=== PATIENT | female | born 2000 | race Caucasian/White ===

== ENCOUNTER 2021-11-01 00:36 | Emergency (ER) | payer BC, SELFPAY ==
--- NOTE | 2021-11-01 00:45 | PC.NURSE ---
Pt tearful at bedside while speaking with parent on phone Pt repeatedly asking why she's in the hospital. Pt denies any complaints currently. Explained to pt that she is in the hospital and to ensure she is physically ok. Pt verbalized understanding
[2021-11-01 00:47] VITALS: BP 127/77; PULSE 105; RESP 18; TEMP 36.7; O2SAT 100; BMI 23.3
--- NOTE | 2021-11-01 01:18 | ED.ALCOHOL ---
HPI - Alcohol General Chief Complaint: Overdose Stated Complaint: ETOH Time Seen by Provider: 11/01/21 00:56 Source: patient and EMS Mode of arrival: EMS Limitations: no limitations History of Present Illness HPI narrative: Patient comes to the emergency room via EMS. EMS reports that patient was found outside a bar with shallow breathing and not responding. Bystanders administered 8 mg of Narcan. By the time EMS arrived, patient was alert and oriented x4. Patient admits to drinking alcohol but denies drug abuse. Patient denies any injuries Related Data Allergies Allergy/AdvReac Type Severity Reaction Status Date / Time No Known Allergies Allergy Unverified 02/01/20 18:32 Review of Systems Review of Systems: Constitutional : No Weight loss, No Fever, No Chills, No Night Sweats, No Fatigue, No Malaise ENT/Mouth : No Hearing loss, No Ear Pain, No Nasal Congestion, No Sinus Pain, No Hoarseness, No sore throat, No Rhinorrhea, No Swallowing Difficulty Eyes: No Eye Pain, No Swelling, No Redness, No Foreign Body, No Discharge, No Vision Changes Cardiovascular : No Chest Pain, No SOB, No Dyspnea on Exertion, No Orthopnea, No Edema, No Palpitations Respiratory : No Cough, No Sputum, No Wheezing, No Smoke Exposure, No Dyspnea Gastrointestinal : No Nausea, No Vomiting, No Diarrhea, No Constipation, No abdominal Pain, No Hematochezia, No Melena Genitourinary : no irregular bleeding, No Dysuria, No Urinary Frequency, No Hematuria, No Urinary Incontinence, No Urgency, No Flank Pain, No Urinary Flow Changes, No Hesitancy Musculoskeletal : No joint pain, No Myalgias, No Joint Swelling Skin : No Skin Lesions, No rash Neuro : No Weakness, No Numbness, No Paresthesias, No Loss of Consciousness, No Dizziness, No Headache Psych : No Anxiety/Panic, No Depression, No SI/HI/AH/VH, admits to drinking heavily today Heme/Lymph: No Bruising, No Bleeding,No Lymphadenopathy Endocrine : No Polyuria, No Polydipsia, No Temperature Intolerance [facility] Past Medical History Medical History (Updated 11/01/21 @ 01:21 by Susannah Monreal MD) Asthma Physical Exam ED Vital Signs: Vital Signs - 24 hr 11/01/21 00:47 Temperature 98.1 F Pulse Rate 105 H Respiratory Rate 18 Blood Pressure 127/77 Pulse Oximetry 100 Oxygen Delivery Method Room Air BMI result Body Mass Index 23.3 Const Other: Appearance: Alert. Oriented X3. No acute distress. Seems a bit intoxicated Eyes: Pupils equal, round and reactive to light. ENT: Pharynx normal. Neck: Normal inspection. Neck supple. No lymph nodes noted. No crepitus CVS: Normal heart rate and rhythm. Pulses normal. Normal S1 and S2 Respiratory: No respiratory distress. Breath sounds normal. No Wheezing. No rales Abdomen: Soft and nontender. No rigidity. No distention. Skin: Skin warm and dry. Normal skin color. Normal skin turgor. Extremities: No lower extremity edema. No Lacerations. No Rash Neuro: Oriented X 3. No motor deficit. No sensory deficit. Moving all extremities. No slurred speech. CN 2 through 12 grossly intact Psych: calm, cooperative, normal affect Course Course Course Narrative: Patient states that she cannot remember anything. We will get basic labs, patient thinks that her parents will be able to pick her up Patient's alcohol is 206. Patient did not provide a urine sample. However, it is suspected that patient used other drugs, including narcotics, since she responded to Narcan. Patient has been saturating 100% on room air. Patient's father is here to wake her up MDM - Alcohol Lab Data Result diagrams: 11/01/21 01:27 11/01/21 01:27 Labs: Lab Results 11/01/21 11/01/21 11/01/21 Range/Units 01:27 01:27 01:27 WBC 7.6 (4.8-10.8) X10*3/uL RBC 4.52 (4.20-5.50) X10*6/uL Hgb 13.1 (12.0-16.0) g/dl Hct 39.6 (37.0-47.0) % MCV 87.6 (80.0-98.0) fL MCH 29.0 (27.0-33.0) pg MCHC 33.1 (31.0-35.0) g/dl RDW 12.9 (11.0-16.0) % Plt Count 263 (160-400) X10*3/uL MPV 10.1 (9.4-12.3) fL Immature Gran % (Auto) 0.3 (0.0-0.4) % Neut % (Auto) 47.9 (45-73) % Lymph % (Auto) 43.2 H (20-40) % [place] % (Auto) 5.0 (2-11) % Eos % (Auto) 2.8 (0-4) % Baso % (Auto) 0.8 (0-2) % Lymph # (Auto) 3.3 (1.2-4.9) X10*3/uL [place] # (Auto) 0.4 (0.1-1.2) X10*3/uL Eos # (Auto) 0.2 (0.0-0.4) X10*3/uL Baso # (Auto) 0.1 (0.0-0.2) X10*3/uL Abs Immat Gran (auto) 0.02 (0.00-0.03) X10*3/uL Absolute Neuts (auto) 3.7 (2.0-8.3) x10*3/uL Absolute Nucleated RBC 0.000 (0.0-0.012) X10*3/uL Nucleated RBC % (auto) 0.0 (0.0-0.2) /100WBC Sodium 143 (135-145) mmol/L Potassium 4.3 (3.3-5.1) mmol/L Chloride 110 H (96-108) mmol/L Carbon Dioxide 25 (22-29) mmol/L Anion Gap 12 (12-20) BUN 7 L (9-16) mg/dL Creatinine 0.77 (0.5-1.4) mg/dL Estim Creat Clear Calc 103.1 Estimated GFR > 60 Random Glucose 106 (60-115) mg/dL Calcium 9.4 (8.4-10.2) mg/dL Total Bilirubin 0.2 (0.0-1.0) mg/dL Direct Bilirubin < 0.2 (0.0-0.5) mg/dL AST 24 (5-31) U/L ALT 32 H (0-31) U/L Alkaline Phosphatase 85 (39-117) U/L Total Protein 7.7 (6.5-8.0) g/dL Albumin 4.6 (3.5-5.0) g/dL Beta HCG, Quant < 2 mIU/mL Ethyl Alcohol 206 mg/dL Discharge Plan Discharge Clinical Impression: Alcohol intoxication Patient Disposition: Home, Self-Care Instructions: Alcohol Intoxication (ED) Additional Instructions: Please follow-up with your primary care physician tomorrow. If you have any worsening or new symptoms, please return to the emergency room or call 911
[2021-11-01 01:31] LABS: MANUAL DIFF FLAG NO
[2021-11-01 01:32] LABS: Basophils Absolute Auto 0.1 X10*3/uL (0.0-0.2); Basophils Percent Auto 0.8 % (0-2); Eosinophils Absolute Auto 0.2 X10*3/uL (0.0-0.4); Eosinophils Percent Auto 2.8 % (0-4); Hematocrit 39.6 % (37.0-47.0); Hemoglobin 13.1 g/dl (12.0-16.0); Imm Gran Abs Auto 0.02 X10*3/uL (0.00-0.03); Imm Gran Pct Auto 0.3 % (0.0-0.4); Lymphocytes Absolute Auto 3.3 X10*3/uL (1.2-4.9); Lymphocytes Percent Auto 43.2 % (20-40); Mean Corpuscular HGB Conc 33.1 g/dl (31.0-35.0); Mean Corpuscular Volume 87.6 fL (80.0-98.0); Mean Platelet Volume 10.1 fL (9.4-12.3); Monocytes Absolute Auto 0.4 X10*3/uL (0.1-1.2); Neutrophils Absolute Auto 3.7 x10*3/uL (2.0-8.3); Neutrophils Percent Auto 47.9 % (45-73); Platelet Count 263 X10*3/uL (160-400); Red Blood Count 4.52 X10*6/uL (4.20-5.50); Red Cell Distribution Width 12.9 % (11.0-16.0); White Blood Count 7.6 X10*3/uL (4.8-10.8)
[2021-11-01 01:48] LABS: Ethanol 206 mg/dL
[2021-11-01 01:51] LABS: Alanine Aminotransferase 32 U/L (0-31); Albumin Level 4.6 g/dL (3.5-5.0); Alkaline Phosphatase 85 U/L (39-117); Anion Gap 12 (12-20); Aspartate Amino Transferase 24 U/L (5-31); Bilirubin Direct < 0.2 mg/dL (0.0-0.5); Bilirubin Total 0.2 mg/dL (0.0-1.0); Blood Urea Nitrogen 7 mg/dL (9-16); Calcium 9.4 mg/dL (8.4-10.2); Carbon Dioxide 25 mmol/L (22-29); Chloride 110 mmol/L (96-108); Creatinine Clr Calc Pharmacy 103.1; Estimated Glomerular Filt Rate > 60; Glucose Random 106 mg/dL (60-115); Potassium 4.3 mmol/L (3.3-5.1); Sodium 143 mmol/L (135-145); Total Protein 7.7 g/dL (6.5-8.0)
[2021-11-01 01:59] LABS: HCG Quantitative < 2 mIU/mL
[2021-11-01 02:16] VITALS: BP 122/75; PULSE 99; O2SAT 98
--- NOTE | 2021-11-01 02:19 | PC.NURSE ---
Pts father at bedside. Pt's father not understanding reason for daughter being brought into the ED. Explained to pt's father that pt was found outside of a bar by a bystander. Per EMS, bystander indicated pt was shallow breathing and not responding. Pt was given narcan by the bystander. Explained to pt's father that pt is in the ED to make sure that she is physically ok.
== END 2021-11-01 02:21 | disposition home or self-care (01) ==
PROVIDERS: Emergency Provider Emergency Medicine
DX: F10.920 Alcohol use, unspecified with intoxication, uncomplicated (principal); Y90.7 Blood alcohol level of 200-239 mg/100 ml
CPT/HCPCS: 36415; 80048; 80076; 82077; 84702; 85025; 99282; 99283

== ENCOUNTER 2022-06-09 01:05 | Emergency (ER) | payer BC, SELFPAY ==
[2022-06-09 01:12] VITALS: BP 112/54; BP 119/70; PULSE 79; PULSE 89; RESP 16; TEMP 36.4; O2SAT 100; O2SAT 99; BMI 23.3
--- NOTE | 2022-06-09 01:23 | ED.OVERDOSE ---
HPI - Overdose General Chief Complaint: Overdose Stated Complaint: overdose Time Seen by Provider: 06/09/22 01:19 Source: EMS Mode of arrival: EMS History of Present Illness HPI Narrative: Patient history of substance abuse was at her friend's house use cocaine Klonopin and Ativan became obtunded no history of opiate use in the past PD gave her 8 mg of Narcan and patient woke up alert on EMS arrival also patient had a whole denies SI or HI Related Data Allergies Allergy/AdvReac Type Severity Reaction Status Date / Time No Known Allergies Allergy Unverified 02/01/20 18:32 Review of Systems Review of Systems: Yes all other systems are reviewed and are negative [facility] Past Medical History Medical History Asthma Social History Social History Advance Directives: No Advance Directives Information Provided: Yes Physical Exam Vital Signs: Vital Signs: Last Vital Signs Temp 98.5 F 06/09/22 02:05 Pulse 87 06/09/22 03:12 Resp 18 06/09/22 03:12 BP 119/80 06/09/22 03:12 Pulse Ox 97 06/09/22 03:12 O2 Del Method 06/09/22 03:12 BMI result Body Mass Index 23.3 Appearance: Alert. Oriented X3. No acute distress. Eyes: PERRLA, No Nystagmus ENT: Pharynx normal. Oral Mucosa moist Neck: Normal inspection. Neck supple. CVS: Normal heart rate and rhythm. Pulses normal. Respiratory: No respiratory distress. Equal air entry bilateral, no wheezing/rales/rhonchi Abdomen: Soft and nontender. Bowel sounds are present, no mass palpable, no CVA tenderness Skin: Skin warm and dry. Normal skin color. Normal skin turgor. Extremities: No lower extremity edema. No calf tenderness Neuro: Oriented X 3. No motor deficit. No sensory deficit.No cerebellar signs , cranial nerves II-XII intact Medical Decision Making Lab Data [facility] Lab Attestation statement: I reviewed the patient's lab results. 06/09/22 01:42 06/09/22 01:41 Labs: Lab Results 06/09/22 06/09/22 06/09/22 Range/Units 01:41 01:42 02:13 WBC 10.8 (4.8-10.8) X10*3/uL RBC 4.59 (4.20-5.50) X10*6/uL Hgb 13.2 (12.0-16.0) g/dl Hct 40.4 (37.0-47.0) % MCV 88.0 (80.0-98.0) fL MCH 28.8 (27.0-33.0) pg MCHC 32.7 (31.0-35.0) g/dl RDW 12.6 (11.0-16.0) % Plt Count 242 (160-400) X10*3/uL MPV 10.2 (9.4-12.3) fL Immature Gran % (Auto) 0.4 (0.0-0.4) % Neut % (Auto) 72.7 (45-73) % Lymph % (Auto) 18.0 L (20-40) % [place] % (Auto) 4.1 (2-11) % Eos % (Auto) 4.2 H (0-4) % Baso % (Auto) 0.6 (0-2) % Lymph # (Auto) 2.0 (1.2-4.9) X10*3/uL [place] # (Auto) 0.4 (0.1-1.2) X10*3/uL Eos # (Auto) 0.5 H (0.0-0.4) X10*3/uL Baso # (Auto) 0.1 (0.0-0.2) X10*3/uL Abs Immat Gran (auto) 0.04 H (0.00-0.03) X10*3/uL Absolute Neuts (auto) 7.9 (2.0-8.3) x10*3/uL Absolute Nucleated RBC 0.000 (0.0-0.012) X10*3/uL Nucleated RBC % (auto) 0.0 (0.0-0.2) /100WBC Sodium 140 (135-145) mmol/L Potassium 3.9 (3.3-5.1) mmol/L Chloride 106 (96-108) mmol/L Carbon Dioxide 21 L (22-29) mmol/L Anion Gap 17 (12-20) BUN 14 (9-16) mg/dL Creatinine 0.99 (0.5-1.4) mg/dL Estim Creat Clear Calc 80.2 Estimated GFR > 60 Random Glucose 108 (60-115) mg/dL Calcium 9.2 (8.4-10.2) mg/dL Total Bilirubin 0.3 (0.0-1.0) mg/dL AST 22 (5-31) U/L ALT 16 (0-31) U/L Alkaline Phosphatase 90 (39-117) U/L Troponin I High Sens < 3.5 (<3.5-17.0) ng/L Total Protein 7.5 (6.5-8.0) g/dL Albumin 4.4 (3.5-5.0) g/dL Ethyl Alcohol mg/dL 06/09/22 Range/Units 02:13 WBC (4.8-10.8) X10*3/uL RBC (4.20-5.50) X10*6/uL Hgb (12.0-16.0) g/dl Hct (37.0-47.0) % MCV (80.0-98.0) fL MCH (27.0-33.0) pg MCHC (31.0-35.0) g/dl RDW (11.0-16.0) % Plt Count (160-400) X10*3/uL MPV (9.4-12.3) fL Immature Gran % (Auto) (0.0-0.4) % Neut % (Auto) (45-73) % Lymph % (Auto) (20-40) % [place] % (Auto) (2-11) % Eos % (Auto) (0-4) % Baso % (Auto) (0-2) % Lymph # (Auto) (1.2-4.9) X10*3/uL [place] # (Auto) (0.1-1.2) X10*3/uL Eos # (Auto) (0.0-0.4) X10*3/uL Baso # (Auto) (0.0-0.2) X10*3/uL Abs Immat Gran (auto) (0.00-0.03) X10*3/uL Absolute Neuts (auto) (2.0-8.3) x10*3/uL Absolute Nucleated RBC (0.0-0.012) X10*3/uL Nucleated RBC % (auto) (0.0-0.2) /100WBC Sodium (135-145) mmol/L Potassium (3.3-5.1) mmol/L Chloride (96-108) mmol/L Carbon Dioxide (22-29) mmol/L Anion Gap (12-20) BUN (9-16) mg/dL Creatinine (0.5-1.4) mg/dL Estim Creat Clear Calc Estimated GFR Random Glucose (60-115) mg/dL Calcium (8.4-10.2) mg/dL Total Bilirubin (0.0-1.0) mg/dL AST (5-31) U/L ALT (0-31) U/L Alkaline Phosphatase (39-117) U/L Troponin I High Sens (<3.5-17.0) ng/L Total Protein (6.5-8.0) g/dL Albumin (3.5-5.0) g/dL Ethyl Alcohol 31 mg/dL Discharge Plan Discharge Clinical Impression: Polysubstance abuse Patient Disposition: Home, Self-Care Instructions: Polysubstance Abuse (ED) Additional Instructions: Stop using cocaine/other drugs follow-up detox Interventions: [place]-Suicide Risk Severity Scale Last Done: 06/09/22 02:25
--- NOTE | 2022-06-09 01:24 | ECG_ITS ---
Test Reason : OVERDOSE Blood Pressure : / mmHG Vent. Rate : 081 BPM Atrial Rate : 081 BPM P-R Int : 144 ms QRS Dur : 088 ms QT Int : 376 ms P-R-T Axes : 055 019 039 degrees QTc Int : 436 ms Normal sinus rhythm Normal ECG When compared with ECG of 25-OCT-2012 14:26, PREVIOUS ECG IS PRESENT Referred By: Rustam Campos Electronically Signed By:MARJ BRADEN
[2022-06-09 01:49] LABS: Basophils Absolute Auto 0.1 X10*3/uL (0.0-0.2); Basophils Percent Auto 0.6 % (0-2); Eosinophils Absolute Auto 0.5 X10*3/uL (0.0-0.4); Eosinophils Percent Auto 4.2 % (0-4); Hematocrit 40.4 % (37.0-47.0); Hemoglobin 13.2 g/dl (12.0-16.0); Imm Gran Abs Auto 0.04 X10*3/uL (0.00-0.03); Imm Gran Pct Auto 0.4 % (0.0-0.4); MANUAL DIFF FLAG NO; Mean Corpuscular HGB Conc 32.7 g/dl (31.0-35.0); Mean Corpuscular Hemoglobin 28.8 pg (27.0-33.0); Mean Platelet Volume 10.2 fL (9.4-12.3); Monocytes Absolute Auto 0.4 X10*3/uL (0.1-1.2); Monocytes Percent Auto 4.1 % (2-11); Neutrophils Absolute Auto 7.9 x10*3/uL (2.0-8.3); Neutrophils Percent Auto 72.7 % (45-73); Platelet Count 242 X10*3/uL (160-400); Red Blood Count 4.59 X10*6/uL (4.20-5.50); Red Cell Distribution Width 12.6 % (11.0-16.0); White Blood Count 10.8 X10*3/uL (4.8-10.8)
[2022-06-09 02:05] VITALS: BP 104/76; PULSE 82; RESP 18; TEMP 36.9; O2SAT 100
[2022-06-09 02:16] LABS: Troponin-I High Sensitivity < 3.5 ng/L (<3.5-17.0)
[2022-06-09 02:30] LABS: Ethanol 31 mg/dL
[2022-06-09 02:40] LABS: Alanine Aminotransferase 16 U/L (0-31); Albumin Level 4.4 g/dL (3.5-5.0); Alkaline Phosphatase 90 U/L (39-117); Anion Gap 17 (12-20); Aspartate Amino Transferase 22 U/L (5-31); Bilirubin Total 0.3 mg/dL (0.0-1.0); Blood Urea Nitrogen 14 mg/dL (9-16); Calcium 9.2 mg/dL (8.4-10.2); Carbon Dioxide 21 mmol/L (22-29); Chloride 106 mmol/L (96-108); Creatinine Clr Calc Pharmacy 80.2; Estimated Glomerular Filt Rate > 60; Glucose Random 108 mg/dL (60-115); Potassium 3.9 mmol/L (3.3-5.1); Sodium 140 mmol/L (135-145); Total Protein 7.5 g/dL (6.5-8.0)
[2022-06-09 03:12] VITALS: BP 119/80; PULSE 87; RESP 18; O2SAT 97
--- OUTSIDE RECORDS SUMMARY | 2022-06-09 03:28 | XMS_ITS | Continuity of Care Document ---
:2000 Author Organization [facility] Address [address] [place] [address]- Care Team Providers Name Role Phone Mitch Arcos MD Primary Care Physician Encounter [facility] Date(s): 06/26/19 - 06/26/[address] [address]- [facility] Attending Physician: Mitch Arcos MD Allergies, Adverse Reactions, Alerts No Known Medication Allergies Medications Focalin By Mouth, 2 times a day, 0 Refills, Maintenance, 06/22/16 19:37:10 Start Date: 06/22/16 Status: OrderedSingulair By Mouth, Daily, 0 Refills, Maintenance, 06/22/16 19:37:18 Start Date: 06/22/16 Status: Ordered
--- OUTSIDE RECORDS SUMMARY | 2022-06-09 03:28 | XMS_ITS | Continuity of Care Document ---
:2000 Author Organization [facility] Address [address] [place] [id number]- Care Team Providers Name Role Phone Mitch Arcos MD Primary Care Physician Encounter [facility] Date(s): 10/17/19 - 10/17/[address] [address]- [facility] Discharge Disposition: A-D/C Walkout Attending Physician: Not on Staff, Attending MD Admitting Physician: Not on Staff, Admitting MD Referring Physician: Not on Staff, Referring MD Allergies, Adverse Reactions, Alerts No Known Medication Allergies Medications Focalin By Mouth, 2 times a day, 0 Refills, Maintenance, 06/22/16 19:37:10 Start Date: 06/22/16 Status: OrderedSingulair By Mouth, Daily, 0 Refills, Maintenance, 06/22/16 19:37:18 Start Date: 06/22/16 Status: Ordered Vital Signs Most recent to oldest [Reference Range]: 1 Weight 64 kg (10/17/19 4:31 AM) Oxygen Saturation [94-100 %] 100 % (10/17/19 4:31 AM) Pulse Rate [55-90 bpm] 79 bpm (10/17/19 4:31 AM) Blood Pressure [90-138/55-84 mm Hg] 118/78 mm Hg (10/17/19 4:31 AM) Respiratory Rate [16-30 br/min] 20 br/min (10/17/19 4:31 AM) Temperature [96.8-100.4 DegF] 99.9 DegF (10/17/19 4:31 AM) Mode of Delivery (Oxygen) Room air (10/17/19 4:31 AM) Temperature Route Oral (10/17/19 4:31 AM) Dry Weight 64 kg (10/17/19 4:31 AM)
--- OUTSIDE RECORDS SUMMARY | 2022-06-09 03:28 | XMS_ITS | Continuity of Care Document ---
:2000 Author Organization [facility] Address [address] [place] [address]- Care Team Providers Name Role Phone Josselyn FARIAS, Mitch Noble Primary Care Physician Encounter [facility] Date(s): 06/29/19 - 06/29/[address] [address]- [facility] Discharge Disposition: A-D/C Walkout Attending Physician: Jonel Moulton MD Admitting Physician: Jonel Moulton MD Referring Physician: Jonel Moulton MD Allergies, Adverse Reactions, Alerts No Known Medication Allergies Medications Focalin By Mouth, 2 times a day, 0 Refills, Maintenance, 06/22/16 19:37:10 Start Date: 06/22/16 Status: OrderedSingulair By Mouth, Daily, 0 Refills, Maintenance, 06/22/16 19:37:18 Start Date: 06/22/16 Status: Ordered
--- OUTSIDE RECORDS SUMMARY | 2022-06-09 03:28 | XMS_ITS | Continuity of Care Document ---
:2000 Author Organization [facility] Address [address] [place] [id number]- Care Team Providers Name Role Phone Josselyn FARIAS, Mitch Noble Primary Care Physician Encounter [facility] Date(s): 07/20/19 - 07/20/[address] [address]- [facility] Encounter Diagnosis Panic attack (Final) - 07/20/19 Discharge Disposition: A-D/C Home Attending Physician: Maik Duong MD Admitting Physician: Maik Duong MD Referring Physician: Not on Staff, Referring MD Allergies, Adverse Reactions, Alerts No Known Medication Allergies Medications Focalin By Mouth, 2 times a day, 0 Refills, Maintenance, 06/22/16 19:37:10 Start Date: 06/22/16 Status: OrderedSingulair By Mouth, Daily, 0 Refills, Maintenance, 06/22/16 19:37:18 Start Date: 06/22/16 Status: Ordered Vital Signs Most recent to oldest [Reference Range]: 1 2 Oxygen Saturation [94-100 %] 100 % 100 % (07/20/19 1:37 AM) (07/20/19 12:50 AM) Pulse Rate [55-90 bpm] 96 bpm 78 bpm *H* (07/20/19 12:50 AM) (07/20/19 1:37 AM) Blood Pressure [90-138/55-84 mm Hg] 117/66 mm Hg 136/ 90 mm Hg (07/20/19 1:37 AM) (07/20/19 12:50 AM) Respiratory Rate [16-30 br/min] 20 br/min 20 br/mi n (07/20/19 1:37 AM) (07/20/19 12:50 AM) Temperature [96.8-100.4 DegF] 98.3 DegF 97.9 DegF (07/20/19 1:37 AM) (07/20/19 12:50 AM) Mode of Delivery (Oxygen) Room air Room air (07/20/19 1:37 AM) (07/20/19 12:50 AM) Blood pressure sites Arm, right Arm, right (07/20/19 1:37 AM) (07/20/19 12:50 AM) Temperature Route Oral Oral (07/20/19 1:37 AM) (07/20/19 12:50 AM)
--- NOTE | 2022-06-09 05:38 | PC.NURSE ---
Patient is alert, cooperative with care. Patient answers questions appropriately. Patient denies SI/HI. Patient denies any pain. VSS. Patient c/o mild nausea, no vomiting. 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 No s/s of distress noted. Call palacio within patient's reach.
[2022-06-09 06:49] VITALS: BP 112/59; PULSE 76; RESP 16; TEMP 36.3; O2SAT 99
== END 2022-06-09 07:35 | disposition home or self-care (01) ==
PROVIDERS: Emergency Provider Internal Medicine
DX: T40.5X1A Poisoning by cocaine, accidental (unintentional), initial encounter (principal); Y92.9 Unspecified place or not applicable; F14.19 Cocaine abuse with unspecified cocaine-induced disorder; Z71.51 Drug abuse counseling and surveillance of drug abuser; Z79.899 Other long term (current) drug therapy
CPT/HCPCS: 36415; 80053; 82077; 84484; 85025; 93005; 99283; 99284

== ENCOUNTER 2022-10-03 12:42 | Emergency (ER) | payer BC, SELFPAY ==
--- NOTE | ~2022-10-03 | CT_ITS ---
EXAMINATION: CT ABDOMEN AND PELVIS WITHOUT CONTRAST CLINICAL INFORMATION: Right lower quadrant pain. COMPARISON: None available. TECHNIQUE: Multidetector volumetric imaging was performed from the superior aspect of the liver through the pubic symphysis. Sagittal and coronal reformatted images were obtained on the technologist's workstation. Lack of intravenous and oral contrast limits visceral evaluation. This CT examination was performed using dose optimization techniques as appropriate, variously including the following: *Automated exposure control *Adjustment of mA and/or kV according to patient size (this includes techniques or standardized protocols for targeted exams where dose is matched to indication/reason for exam; i.e. extremities or head) *Use of iterative reconstruction technique DLP: 41 mGy-cm FINDINGS: LUNG BASES: The visualized lung bases are unremarkable. LIVER, GALLBLADDER, AND BILIARY TREE: Unremarkable. PANCREAS: Unremarkable. SPLEEN: Unremarkable. ADRENAL GLANDS: Unremarkable. KIDNEYS AND URETERS: The kidneys are normal in size, shape, and attenuation. No hydronephrosis, hydroureter, or calculi seen. No perinephric stranding. BLADDER: Unremarkable. GASTROINTESTINAL TRACT: The stomach, small bowel and appendix are unremarkable. The colon and rectum are unremarkable. ABDOMINAL WALL: No significant hernia is appreciated. LYMPH NODES: Unremarkable. VASCULAR: Unremarkable. PELVIC VISCERA: Anteverted/retroflexed uterus. No adnexal abnormality. OSSEOUS STRUCTURES: Unremarkable. CT/CT abdomen pelvis wo IV con IMPRESSION: No acute intra-abdominal/pelvic abnormality to explain the patient's pain. No evidence for acute appendicitis. Fleischner guidelines were followed.
[2022-10-03 12:44] VITALS: BP 112/87; PULSE 84; RESP 16; TEMP 36.2; O2SAT 99; BMI 24.5
--- NOTE | 2022-10-03 12:46 | ED.GENADULT ---
HPI - General Adult General Chief complaint: Abdominal Pain Stated complaint: R side abd pain Time Seen by Provider: 10/03/22 13:25 Source: patient and family (Father, Osmany) Mode of arrival: ambulatory Limitations: no limitations History of Present Illness HPI narrative: 21-year-old female who presents emergency department for evaluation of right-sided flank and abdominal pain. The patient states the pain came on gradually 3 or 4 days prior to evaluation. She states that the pain was intermittent and would go away completely. She states that last night the pain became constant. She describes the pain is a sharp pain. She points to her right flank when asked to localize the pain. The pain does radiate to her right lower abdomen. She states the pain is 7/10 at its worst. She denied fever or chills she states she had nausea but no vomiting or diarrhea. She denied frequency be did have some dysuria. The patient states she is sexually active. She last had intercourse 1 week prior. She denies any vaginal discharge. Related Data Previous Rx's Medication Instructions Recorded cephalexin 500 mg capsule 500 mg PO TID 5 days #15 caps 10/03/22 phenazopyridine 200 mg tablet 200 mg PO TID PRN Burning with 10/03/22 (Pyridium) urination #10 tabs Allergies Allergy/AdvReac Type Severity Reaction Status Date / Time No Known Allergies Allergy Verified 10/03/22 12:44 Review of Systems Review of Systems: Yes all other systems are reviewed and are negative [facility] Past Medical History [facility] Narrative: Past medical history: Asthma. Past surgical history: None. Social history: Patient states that she is sexually active, she last had intercourse 1 to prior. She denies any vaginal discharge Medical History Asthma Social History Social History Alcohol intake: current Alcohol intake frequency: holidays/special occasions only Smoked in Last 30 Days: No Use of substances other than those prescribed or required for medical reasons: No Advance Directives: No Physical Exam ED Vital Signs: Vital Signs - 24 hr 10/03/22 12:44 10/03/22 15:17 Temperature 97.2 F Pulse Rate 84 80 Respiratory Rate 16 16 Blood Pressure 112/87 105/56 L Pulse Oximetry 99 99 Oxygen Delivery Method Room Air Room Air BMI result Body Mass Index 24.5 Course Course Course Narrative: RME performed by Cathy Hope PA-C. Patient is a 21 year old assigned female at presenting to the emergency department with abdominal pain. Labs ordered. Patient placed back in the waiting room pending room availability and results. Medications Administered Discontinued Medications Generic Name Dose Route Start Last Admin Trade Name Sebastienq PRN Reason Stop Dose Admin Sodium Chloride 1,000 mls @ 999 mls/hr 10/03/22 13:37 10/03/22 13:45 Ns IV 10/03/22 14:37 999 mls/hr .Q1H1M STA Administration Ketorolac Tromethamine 15 mg 10/03/22 13:37 10/03/22 13:45 Ketorolac Tromethamine 15 Mg/Ml Vial IVPUSH 10/03/22 13:38 15 mg ONCE STA Administration Ondansetron HCl 4 mg 10/03/22 13:37 10/03/22 13:45 Ondansetron Hcl 4 Mg/2 Ml Vial IVPUSH 10/03/22 13:38 4 mg ONCE ONE Administration Medical Decision Making Medical Decision Making MDM Narrative: 21-year-old female who presents emergency department for evaluation of right flank pain times 3-4 days which was intermittent and then became constant over the past 24 hours. The pain is a sharp pain and does radiate to her right groin area. I did order laboratory evaluation includes CBC, CMP, lipase, urinalysis, quantitative beta-hCG. CT scan of the abdomen pelvis without IV contrast was also ordered. Patient was ordered to get normal saline x1 L , Toradol 15 mg IV and Zofran 4 mg IV. 1613: My interpretation patient's laboratory evaluation is as follows: CBC and CMP were normal. Quantitative beta hCG was below detectable limits. Urinalysis revealed 1+ protein, 1+ blood, positive nitrates, positive leukocyte esterase. Microscopic revealed 0 RBCs, greater than 50 WBCs 20 squamous cells 4+ bacteria-this is not a midstream specimen The patient is feeling significantly better after the above treatment. At this time, I am concerned that she may have urinary tract infection with early pyelonephritis. The patient was treated with Keflex 500 mg orally. She was given a prescription for Keflex 500 mg 3 times a day for 5 days. She was also given prescription for Pyridium 200 mg 3 times a day as needed for dysuria. Patient was advised to take Tylenol ibuprofen for pain. Was advised return emergency department for symptoms get worse or she develops any new symptoms concerning to her. Differential Diagnosis Differential Diagnoses: The differential diagnosis associated with the presentation includes Lab Data MDM Lab Attestation statement: I reviewed the patient's lab results. 10/03/22 13:23 10/03/22 13:23 Labs: Lab Results 10/03/22 10/03/22 10/03/22 Range/Units 13:23 13:23 13:50 WBC 7.8 (4.8-10.8) X10*3/uL RBC 4.63 (4.20-5.50) X10*6/uL Hgb 13.6 (12.0-16.0) g/dl Hct 40.8 (37.0-47.0) % MCV 88.1 (80.0-98.0) fL MCH 29.4 (27.0-33.0) pg MCHC 33.3 (31.0-35.0) g/dl RDW 12.5 (11.0-16.0) % Plt Count 246 (160-400) X10*3/uL MPV 10.2 (9.4-12.3) fL Immature Gran % (Auto) 0.3 (0.0-0.4) % Neut % (Auto) 65.8 (45-73) % Lymph % (Auto) 17.3 L (20-40) % [place] % (Auto) 12.5 H (2-11) % Eos % (Auto) 3.3 (0-4) % Baso % (Auto) 0.8 (0-2) % Lymph # (Auto) 1.4 (1.2-4.9) X10*3/uL [place] # (Auto) 1.0 (0.1-1.2) X10*3/uL Eos # (Auto) 0.3 (0.0-0.4) X10*3/uL Baso # (Auto) 0.1 (0.0-0.2) X10*3/uL Abs Immat Gran (auto) 0.02 (0.00-0.03) X10*3/uL Absolute Neuts (auto) 5.1 (2.0-8.3) x10*3/uL Absolute Nucleated RBC 0.000 (0.0-0.012) X10*3/uL Nucleated RBC % (auto) 0.0 (0.0-0.2) /100WBC Sodium 136 (135-145) mmol/L Potassium 4.5 (3.3-5.1) mmol/L Chloride 103 (96-108) mmol/L Carbon Dioxide 24 (22-29) mmol/L Anion Gap 14 (12-20) BUN 14 (9-16) mg/dL Creatinine 0.81 (0.5-1.4) mg/dL Estim Creat Clear Calc 98.0 Estimated GFR > 60 Random Glucose 79 (60-115) mg/dL Calcium 9.7 (8.4-10.2) mg/dL Magnesium 2.2 (1.6-2.6) mg/dL Total Bilirubin 0.5 (0.0-1.0) mg/dL AST 27 (5-31) U/L ALT 14 (0-31) U/L Alkaline Phosphatase 84 (39-117) U/L Total Protein 8.2 H (6.5-8.0) g/dL Albumin 4.3 (3.5-5.0) g/dL Beta HCG, Quant < 2 mIU/mL Urine Color Yellow Urine Appearance Turbid Urine pH 6.0 (5.0-9.0) Ur Specific [place] 1.015 (1.005-1.025) Urine Protein 30 (1+) H (Neg-Trace) mg/dL Urine Glucose (UA) Negative (Negative) mg/dL Urine Ketones 15 (Negative) mg/dL Urine Blood Small (1+) H (Negative) Urine Nitrite Positive H (Negative) Ur Leukocyte Esterase Large (3+) H (Negative) Urine RBC 0-2 (0-2) /HPF Urine WBC >50 H (0-5) /HPF Ur Squamous Epith Cells 11-20 (0-2) /HPF Urine Bacteria 4+ (None Seen) Hyaline Casts 0-2 (0-2) /LPF Discharge Plan Discharge Clinical Impression: Abdominal wall pain in right flank Abdominal pain Qualifiers: Abdominal location: right lower quadrant Qualified Code(s): R10.31 - Right lower quadrant pain Patient Disposition: Home, Self-Care Instructions: Urinary Tract Infection in Women (ED) Additional Instructions: Your blood work was normal. The CT scan of your abdomen pelvis did not reveal any significant abnormality to explain your pain. Your urine did have a significant number of white blood cells and bacteria. Your symptoms are most likely caused by urinary tract infection in you may also have a infection of your right kidney which is causing her pain. Take Keflex (cephalexin) 500 mg pills, 1 pill 3 times a day for 5 days. Take Pyridium 200 mg pills, 1 pill 2 times a day as needed for burning with urination, this medicine will make your urine turn orange. Take ibuprofen 200 mg pills, 3 pills every 6 hours as needed for pain. Take Tylenol (acetaminophen) 500 mg pills, 2 pills every 6 hours as needed for pain. Follow-up with your doctor in 2 days. Please return to the emergency department if your symptoms get worse or if you develop any symptoms that are concerning to you. Prescriptions: New cephalexin 500 mg capsule 500 mg PO TID 5 Days Qty: 15 0RF phenazopyridine [Pyridium] 200 mg tablet 200 mg PO TID PRN (Reason: Burning with urination) Qty: 10 0RF
[2022-10-03 13:28] LABS: MANUAL DIFF FLAG NO
--- NOTE | 2022-10-03 13:28 | PC.NURSE ---
pt AOx3, reporting sharp right back and flank pain that radiates to front/abdomen. Pain has been going on for a couple days but increased in intensity last night. Pt reports pain with urination. Labs drawn and IV inserted.
[2022-10-03 13:29] LABS: Basophils Absolute Auto 0.1 X10*3/uL (0.0-0.2); Basophils Percent Auto 0.8 % (0-2); Eosinophils Absolute Auto 0.3 X10*3/uL (0.0-0.4); Eosinophils Percent Auto 3.3 % (0-4); Hematocrit 40.8 % (37.0-47.0); Hemoglobin 13.6 g/dl (12.0-16.0); Imm Gran Abs Auto 0.02 X10*3/uL (0.00-0.03); Imm Gran Pct Auto 0.3 % (0.0-0.4); Lymphocytes Absolute Auto 1.4 X10*3/uL (1.2-4.9); Lymphocytes Percent Auto 17.3 % (20-40); Mean Corpuscular HGB Conc 33.3 g/dl (31.0-35.0); Mean Corpuscular Hemoglobin 29.4 pg (27.0-33.0); Mean Corpuscular Volume 88.1 fL (80.0-98.0); Mean Platelet Volume 10.2 fL (9.4-12.3); Monocytes Percent Auto 12.5 % (2-11); Neutrophils Absolute Auto 5.1 x10*3/uL (2.0-8.3); Neutrophils Percent Auto 65.8 % (45-73); Platelet Count 246 X10*3/uL (160-400); Red Blood Count 4.63 X10*6/uL (4.20-5.50); Red Cell Distribution Width 12.5 % (11.0-16.0); White Blood Count 7.8 X10*3/uL (4.8-10.8)
[2022-10-03] MEDS: 0.9 % Sodium Chloride 1,000 ML 999 ML IV (13:45)
[2022-10-03] MEDS: Ketorolac Tromethamine 15 MG/ML VIAL IVPUSH (13:45)
[2022-10-03] MEDS: ondansetron HCL 4 MG/2 ML VIAL IVPUSH (13:45)
[2022-10-03 14:01] LABS: Appearance Urine Turbid; Color Urine Yellow; Glucose Urine UA Negative (Negative); Leukocyte Esterase Urine Large (3+) (Negative); Nitrite Urine Positive (Negative); Specific Gravity - Urine 1.015 (1.005-1.025); UMIC TRIGGER UACC YES; Urine Blood Small (1+) (Negative); Urine Ketones 15 mg/dL (Negative); Urine Protein 30 (1+) mg/dL (Neg-Trace)
[2022-10-03 14:10] LABS: Alanine Aminotransferase 14 U/L (0-31); Albumin Level 4.3 g/dL (3.5-5.0); Alkaline Phosphatase 84 U/L (39-117); Anion Gap 14 (12-20); Aspartate Amino Transferase 27 U/L (5-31); Bilirubin Total 0.5 mg/dL (0.0-1.0); Blood Urea Nitrogen 14 mg/dL (9-16); Calcium 9.7 mg/dL (8.4-10.2); Carbon Dioxide 24 mmol/L (22-29); Chloride 103 mmol/L (96-108); Estimated Glomerular Filt Rate > 60; Glucose Random 79 mg/dL (60-115); HCG Quantitative < 2 mIU/mL; Magnesium 2.2 mg/dL (1.6-2.6); Potassium 4.5 mmol/L (3.3-5.1); Sodium 136 mmol/L (135-145); Total Protein 8.2 g/dL (6.5-8.0)
[2022-10-03 14:12] LABS: Bacteria Urine 4+ (None Seen); RBC Urine 0-2 /HPF (0-2); UACC Culture Trigger YES; WBC Urine >50 /HPF (0-5)
[2022-10-03 14:13] LABS: Hyaline Casts Urine 0-2 /LPF (0-2)
--- NOTE | 2022-10-03 14:35 | PC.NURSE ---
pt back from CT scan, fluids running. reporting little to no pain. will ctm
[2022-10-03 15:17] VITALS: BP 105/56; PULSE 80; RESP 16; O2SAT 99
[2022-10-03] MEDS: cephALEXin 500 MG CAPSULE PO (16:31)
== END 2022-10-03 16:56 | disposition home or self-care (01) ==
PROVIDERS: Physician Assistant Medical; Emergency Provider Emergency Medicine Emergency Medical Services
DX: R10.31 Right lower quadrant pain (principal); N39.0 Urinary tract infection, site not specified; B96.20 Unspecified Escherichia coli [E. coli] as the cause of diseases classified elsewhere
CPT/HCPCS: 36415; 74176; 80053; 81001; 81003; 83735; 84702; 85025; 87086; 87088; 87186; 96360; 96361; 99284; J1885; J2405

== ENCOUNTER 2022-12-05 07:22 | Emergency (ER) | payer BC, SELFPAY ==
--- NOTE | ~2022-12-05 | XR_ITS ---
EXAMINATION: XR CHEST CLINICAL INFORMATION: Cough COMPARISON: Previous chest x-ray October 2012 TECHNIQUE: Frontal view of the chest was obtained. FINDINGS: No significant abnormality is noted involving the heart, lungs, mediastinum, bony thorax or soft tissues. XR/XR chest 1V IMPRESSION: Unremarkable examination.
--- NOTE | ~2022-12-05 | CT_ITS ---
EXAMINATION: CT CERVICAL SPINE WITHOUT CONTRAST CLINICAL INFORMATION: Altered mental status COMPARISON: None available. TECHNIQUE: Axial images through the cervical spine without IV contrast. Sagittal and coronal reconstructions on the technologist workstation were performed. This CT examination was performed using dose optimization techniques as appropriate, variously including the following: *Automated exposure control *Adjustment of mA and/or kV according to patient size (this includes techniques or standardized protocols for targeted exams where dose is matched to indication/reason for exam; i.e. extremities or head) *Use of iterative reconstruction technique DLP: 392 mGy-cm FINDINGS: Bone alignment is normal. No fracture or dislocation. Disc spaces are normal. Prevertebral soft tissues are normal. Visualized lung apices are clear. CT/CT cervical spine wo IV con IMPRESSION: Unremarkable examination. Fleischner guidelines were followed.
--- NOTE | ~2022-12-05 | CT_ITS ---
EXAMINATION: CT HEAD WITHOUT CONTRAST CLINICAL INFORMATION: Altered mental status COMPARISON: None available. TECHNIQUE: Contiguous axial imaging was performed from the skull base to vertex without intravenous administration of contrast. This CT examination was performed using dose optimization techniques as appropriate, variously including the following: *Automated exposure control *Adjustment of mA and/or kV according to patient size (this includes techniques or standardized protocols for targeted exams where dose is matched to indication/reason for exam; i.e. extremities or head) *Use of iterative reconstruction technique DLP: 610 mGy-cm FINDINGS: There is no evidence of an extra-axial collection. There is no evidence of intra or extra-axial hemorrhage. The ventricles and extra-axial CSF spaces are appropriate. Francis-white matter differentiation is normal. No mass, mass effect or infarct. Review at bone windows is normal. CT/CT head/brain wo IV con IMPRESSION: Unremarkable exam.
--- NOTE | 2022-12-05 07:27 | ECG_ITS ---
Test Reason : unresponsive Blood Pressure : / mmHG Vent. Rate : 086 BPM Atrial Rate : 086 BPM P-R Int : 146 ms QRS Dur : 094 ms QT Int : 384 ms P-R-T Axes : 054 017 041 degrees QTc Int : 459 ms Normal sinus rhythm Normal ECG When compared with ECG of 09-JUN-2022 01:54, No significant change was found Referred By: Hammad Casas Electronically Signed By:Miquel Ayala
--- NOTE | 2022-12-05 07:30 | ED_ITS ---
HPI - Altered Mental Status General Chief Complaint: General Medical Stated Complaint: Unresponsive x 1 hour per EMS Time Seen by Provider: 12/05/22 07:26 Source: EMS Mode of arrival: EMS Limitations: altered mental status History of Present Illness HPI narrative: This is a 22 years old female with history of poly substance abuse brought in with altered mental status. According to the EMS she has been using drugs or night she arrived obtunded, with spontaneous respiration no sign of trauma on primary survey. She received narcan prehospital 4 mg with no response. MD complaint: altered mental status Onset (ago): unknown Severity: moderate Context: drug abuse Related Data Previous Rx's Medication Instructions Recorded cephalexin 500 mg capsule 500 mg PO TID 5 days #15 caps 10/03/22 phenazopyridine 200 mg tablet 200 mg PO TID PRN Burning with 10/03/22 (Pyridium) urination 3 days #9 tabs Allergies Allergy/AdvReac Type Severity Reaction Status Date / Time No Known Allergies Allergy Verified 10/03/22 12:44 Review of Systems Review of Systems: Yes Unobtainable due to mental condition [facility] Past Medical History Medical History Asthma Social History Social History Alcohol intake: current Alcohol intake frequency: a few times a week Smoked in Last 30 Days: Yes Use of substances other than those prescribed or required for medical reasons: Yes Substance Use Type: Crack/Cocaine Substance Use Frequency: Monthly Last Used Substance: Just Prior to Admission Advance Directives: No Advance Directives Information Provided: Yes Physical Exam ED Vital Signs: Vital Signs - 24 hr 12/05/22 07:33 12/05/22 08:33 12/05/22 11:52 Temperature 98.6 F Pulse Rate 82 84 74 Respiratory Rate 16 18 19 Blood Pressure 119/84 139/99 H 101/52 L Pulse Oximetry 98 97 Oxygen Delivery Method Room Air Room Air Room Air 12/05/22 12:52 Temperature Pulse Rate 72 Respiratory Rate 20 Blood Pressure 95/59 L Pulse Oximetry 97 Oxygen Delivery Method Room Air BMI result Body Mass Index 23.9 Const Other: Decreased level of consciousness General: patient obtunded Nutritional Appearance: average body habitus Orientation/consciousness: patient obtunded HENMT Head: Yes normal to inspection Eyes Other: Pupils reactive mid size Conjunctivae: conjunctivae normal Neck Neck: Yes normal visual inspection Resp Effort & Inspection: normal respiratory effort Cardio Jugular venous distension: no JVD Rhythm: regular rhythm GI Inspection: Yes normal to inspection Palpation (GI): Soft to palpation, not firm, nontender and no guarding Auscultation: normal bowel sounds Neuro Other: Patient is alter does not respond to voice General: patient obtunded Course Reevaluation(s) Reevaluation #1: Her vital signs are stable, O2 sat is 100% she is breathing she is obtunded, my plan is to observe her for about an hour check toxicology labs she may need to be intubated for airway protection. Time: 07:53 Reevaluation #2: now more awake and alert Time: 08:22 Reevaluation #3: continue observation getting better,got up to the bathroom Time: 10:31 Additional Reevaluation(s): seen by crisis does not want detox Medications Administered Discontinued Medications Generic Name Dose Route Start Last Admin Trade Name Sebastienq PRN Reason Stop Dose Admin Sodium Chloride 1,000 mls @ 999 mls/hr 12/05/22 07:30 12/05/22 10:43 Ns IVCONT 12/05/22 08:30 Infused .Q1H1M HEIDI Infusion Sodium Chloride 1,000 mls @ 999 mls/hr 12/05/22 08:00 12/05/22 10:43 Ns IVCONT 12/05/22 09:00 Infused .Q1H1M HEIDI Infusion Medical Decision Making Medical Decision Making [facility] Narrative: Patient presented with altered mental status will do hed ct, labs Differential Diagnosis Differential Diagnoses: The differential diagnosis associated with the presentation includes Head bleed alcohol intoxication overdose Lab Data [facility] Lab Attestation statement: I reviewed the patient's lab results. 12/05/22 07:42 Labs: Lab Results 12/05/22 12/05/22 12/05/22 Range/Units 07:27 07:42 07:42 WBC (4.8-10.8) X10*3/uL RBC (4.20-5.50) X10*6/uL Hgb (12.0-16.0) g/dl Hct (37.0-47.0) % MCV (80.0-98.0) fL MCH (27.0-33.0) pg MCHC (31.0-35.0) g/dl RDW (11.0-16.0) % Plt Count (160-400) X10*3/uL MPV (9.4-12.3) fL Immature Gran % (Auto) (0.0-0.4) % Neut % (Auto) (45-73) % Lymph % (Auto) (20-40) % [place] % (Auto) (2-11) % Eos % (Auto) (0-4) % Baso % (Auto) (0-2) % Lymph # (Auto) (1.2-4.9) X10*3/uL [place] # (Auto) (0.1-1.2) X10*3/uL Eos # (Auto) (0.0-0.4) X10*3/uL Baso # (Auto) (0.0-0.2) X10*3/uL Abs Immat Gran (auto) (0.00-0.03) X10*3/uL Absolute Neuts (auto) (2.0-8.3) x10*3/uL Absolute Nucleated RBC (0.0-0.012) X10*3/uL Nucleated RBC % (auto) (0.0-0.2) /100WBC Sodium (135-145) mmol/L Potassium (3.3-5.1) mmol/L Chloride (96-108) mmol/L Carbon Dioxide (22-29) mmol/L Anion Gap (12-20) BUN (9-16) mg/dL Creatinine (0.5-1.4) mg/dL Estim Creat Clear Calc Estimated GFR POC Glucose 80 (60-115) mg/dL Random Glucose (60-115) mg/dL Calcium (8.4-10.2) mg/dL Total Bilirubin (0.0-1.0) mg/dL AST (5-31) U/L ALT (0-31) U/L Alkaline Phosphatase (39-117) U/L Troponin I High Sens < 2.7 (<3.5-17.0) ng/L Total Protein (6.5-8.0) g/dL Albumin (3.5-5.0) g/dL Beta HCG, Quant mIU/mL Urine Color Urine Appearance Urine pH (5.0-9.0) Ur Specific [place] (1.005-1.025) Urine Protein (Neg-Trace) mg/dL Urine Glucose (UA) (Negative) mg/dL Urine Ketones (Negative) mg/dL Urine Blood (Negative) Urine Nitrite (Negative) Ur Leukocyte Esterase (Negative) Urine RBC (0-2) /HPF Urine WBC (0-5) /HPF Ur Squamous Epith Cells (0-2) /HPF Urine Bacteria (None Seen) Hyaline Casts (0-2) /LPF Urine Opiates Screen (Not Detect) Urine Fentanyl Screen (Not Detect) Ur Barbiturates Screen (Not Detect) Ur Phencyclidine Scrn (Not Detect) Ur Amphetamines Screen (Not Detect) U Benzodiazepines Scrn (Not Detect) Urine Cocaine Screen (Not Detect) U Marijuana (THC) Screen (Not Detect) Ethyl Alcohol 138 mg/dL 12/05/22 12/05/22 12/05/22 Range/Units 07:42 08:38 08:38 WBC 6.4 (4.8-10.8) X10*3/uL RBC 4.82 (4.20-5.50) X10*6/uL Hgb 13.9 (12.0-16.0) g/dl Hct 42.5 (37.0-47.0) % MCV 88.2 (80.0-98.0) fL MCH 28.8 (27.0-33.0) pg MCHC 32.7 (31.0-35.0) g/dl RDW 12.7 (11.0-16.0) % Plt Count 250 (160-400) X10*3/uL MPV 10.1 (9.4-12.3) fL Immature Gran % (Auto) 0.3 (0.0-0.4) % Neut % (Auto) 48.4 (45-73) % Lymph % (Auto) 41.4 H (20-40) % [place] % (Auto) 4.7 (2-11) % Eos % (Auto) 4.4 H (0-4) % Baso % (Auto) 0.8 (0-2) % Lymph # (Auto) 2.7 (1.2-4.9) X10*3/uL [place] # (Auto) 0.3 (0.1-1.2) X10*3/uL Eos # (Auto) 0.3 (0.0-0.4) X10*3/uL Baso # (Auto) 0.1 (0.0-0.2) X10*3/uL Abs Immat Gran (auto) 0.02 (0.00-0.03) X10*3/uL Absolute Neuts (auto) 3.1 (2.0-8.3) x10*3/uL Absolute Nucleated RBC 0.000 (0.0-0.012) X10*3/uL Nucleated RBC % (auto) 0.0 (0.0-0.2) /100WBC Sodium 144 (135-145) mmol/L Potassium 3.9 (3.3-5.1) mmol/L Chloride 110 H (96-108) mmol/L Carbon Dioxide 25 (22-29) mmol/L Anion Gap 13 (12-20) BUN 8 L (9-16) mg/dL Creatinine 0.95 (0.5-1.4) mg/dL Estim Creat Clear Calc 86.2 Estimated GFR > 60 POC Glucose (60-115) mg/dL Random Glucose 86 (60-115) mg/dL Calcium 9.5 (8.4-10.2) mg/dL Total Bilirubin 0.3 (0.0-1.0) mg/dL AST 19 (5-31) U/L ALT 14 (0-31) U/L Alkaline Phosphatase 95 (39-117) U/L Troponin I High Sens (<3.5-17.0) ng/L Total Protein 8.7 H (6.5-8.0) g/dL Albumin 5.0 (3.5-5.0) g/dL Beta HCG, Quant < 2 mIU/mL Urine Color Urine Appearance Urine pH (5.0-9.0) Ur Specific [place] (1.005-1.025) Urine Protein (Neg-Trace) mg/dL Urine Glucose (UA) (Negative) mg/dL Urine Ketones (Negative) mg/dL Urine Blood (Negative) Urine Nitrite (Negative) Ur Leukocyte Esterase (Negative) Urine RBC (0-2) /HPF Urine WBC (0-5) /HPF Ur Squamous Epith Cells (0-2) /HPF Urine Bacteria (None Seen) Hyaline Casts (0-2) /LPF Urine Opiates Screen (Not Detect) Urine Fentanyl Screen (Not Detect) Ur Barbiturates Screen (Not Detect) Ur Phencyclidine Scrn (Not Detect) Ur Amphetamines Screen (Not Detect) U Benzodiazepines Scrn (Not Detect) Urine Cocaine Screen (Not Detect) U Marijuana (THC) Screen (Not Detect) Ethyl Alcohol mg/dL 12/05/22 12/05/22 Range/Units 11:03 11:03 WBC (4.8-10.8) X10*3/uL RBC (4.20-5.50) X10*6/uL Hgb (12.0-16.0) g/dl Hct (37.0-47.0) % MCV (80.0-98.0) fL MCH (27.0-33.0) pg MCHC (31.0-35.0) g/dl RDW (11.0-16.0) % Plt Count (160-400) X10*3/uL MPV (9.4-12.3) fL Immature Gran % (Auto) (0.0-0.4) % Neut % (Auto) (45-73) % Lymph % (Auto) (20-40) % [place] % (Auto) (2-11) % Eos % (Auto) (0-4) % Baso % (Auto) (0-2) % Lymph # (Auto) (1.2-4.9) X10*3/uL [place] # (Auto) (0.1-1.2) X10*3/uL Eos # (Auto) (0.0-0.4) X10*3/uL Baso # (Auto) (0.0-0.2) X10*3/uL Abs Immat Gran (auto) (0.00-0.03) X10*3/uL Absolute Neuts (auto) (2.0-8.3) x10*3/uL Absolute Nucleated RBC (0.0-0.012) X10*3/uL Nucleated RBC % (auto) (0.0-0.2) /100WBC Sodium (135-145) mmol/L Potassium (3.3-5.1) mmol/L Chloride (96-108) mmol/L Carbon Dioxide (22-29) mmol/L Anion Gap (12-20) BUN (9-16) mg/dL Creatinine (0.5-1.4) mg/dL Estim Creat Clear Calc Estimated GFR POC Glucose (60-115) mg/dL Random Glucose (60-115) mg/dL Calcium (8.4-10.2) mg/dL Total Bilirubin (0.0-1.0) mg/dL AST (5-31) U/L ALT (0-31) U/L Alkaline Phosphatase (39-117) U/L Troponin I High Sens (<3.5-17.0) ng/L Total Protein (6.5-8.0) g/dL Albumin (3.5-5.0) g/dL Beta HCG, Quant mIU/mL Urine Color Yellow Urine Appearance Clear Urine pH 6.0 (5.0-9.0) Ur Specific [place] 1.010 (1.005-1.025) Urine Protein Negative (Neg-Trace) mg/dL Urine Glucose (UA) Negative (Negative) mg/dL Urine Ketones Negative (Negative) mg/dL Urine Blood Negative (Negative) Urine Nitrite Negative (Negative) Ur Leukocyte Esterase Negative (Negative) Urine RBC 0-2 (0-2) /HPF Urine WBC 0-5 (0-5) /HPF Ur Squamous Epith Cells 0-2 (0-2) /HPF Urine Bacteria None Seen (None Seen) Hyaline Casts 0-2 (0-2) /LPF Urine Opiates Screen Not Detected (Not Detect) Urine Fentanyl Screen Not Detected (Not Detect) Ur Barbiturates Screen Not Detected (Not Detect) Ur Phencyclidine Scrn Not Detected (Not Detect) Ur Amphetamines Screen Not Detected (Not Detect) U Benzodiazepines Scrn Not Detected (Not Detect) Urine Cocaine Screen POSITIVE H (Not Detect) U Marijuana (THC) Screen Not Detected (Not Detect) Ethyl Alcohol mg/dL Independent Interpretation I performed an independent interpretation of an: EKG Interpretation: Normal sinus rhythm a no ST-T changes Critical Care Time Critical Care Time Critical Care Time: Yes Total Critical Care Time: 60 Attestation: unresponsive taking care of the pt/speaking to EMS/ Discharge Plan Discharge Clinical Impression: Drug abuse, Alcohol abuse Patient Disposition: Home, Self-Care Instructions: Polysubstance Abuse (ED) Additional Instructions: Follow-up with primary care physician, return if you are worse Prescriptions: No Action phenazopyridine [Pyridium] 200 mg tablet 200 mg PO TID PRN (Reason: Burning with urination) 3 Days Qty: 9 0RF cephalexin 500 mg capsule 500 mg PO TID 5 Days Qty: 15 0RF Referrals: Physician,Unknown J [Primary Care Provider] - 3 days
[2022-12-05 07:33] VITALS: BP 119/84; BP 120/90; PULSE 82; PULSE 85; RESP 16; TEMP 37; O2SAT 98; BMI 23.9
[2022-12-05 07:46] LABS: MANUAL DIFF FLAG NO
[2022-12-05 07:48] LABS: Glucose, Whole Blood 80 mg/dL (60-115)
[2022-12-05 07:48] LABS: Basophils Absolute Auto 0.1 X10*3/uL (0.0-0.2); Basophils Percent Auto 0.8 % (0-2); Eosinophils Absolute Auto 0.3 X10*3/uL (0.0-0.4); Eosinophils Percent Auto 4.4 % (0-4); Hematocrit 42.5 % (37.0-47.0); Hemoglobin 13.9 g/dl (12.0-16.0); Imm Gran Abs Auto 0.02 X10*3/uL (0.00-0.03); Imm Gran Pct Auto 0.3 % (0.0-0.4); Lymphocytes Absolute Auto 2.7 X10*3/uL (1.2-4.9); Lymphocytes Percent Auto 41.4 % (20-40); Mean Corpuscular HGB Conc 32.7 g/dl (31.0-35.0); Mean Corpuscular Hemoglobin 28.8 pg (27.0-33.0); Mean Corpuscular Volume 88.2 fL (80.0-98.0); Mean Platelet Volume 10.1 fL (9.4-12.3); Monocytes Absolute Auto 0.3 X10*3/uL (0.1-1.2); Monocytes Percent Auto 4.7 % (2-11); Neutrophils Absolute Auto 3.1 x10*3/uL (2.0-8.3); Neutrophils Percent Auto 48.4 % (45-73); Platelet Count 250 X10*3/uL (160-400); Red Blood Count 4.82 X10*6/uL (4.20-5.50); Red Cell Distribution Width 12.7 % (11.0-16.0); White Blood Count 6.4 X10*3/uL (4.8-10.8)
--- NOTE | 2022-12-05 07:54 | PC.NURSE ---
pt BIBA. found unresponsive. friends reported a night of alcohol and cocaine use. hx of seizures. down time 45min-1hr. EMS gave 4mg narcan. unreactive to all stimuli. pt still unresponsive on arrival. VSS. pupils dilated but reactive to light. feet turned inward.
[2022-12-05] MEDS: 0.9 % Sodium Chloride 1,000 ML 999 ML IVCONT ×2 (07:57→08:29)
[2022-12-05 08:01] LABS: Ethanol 138 mg/dL
[2022-12-05 08:33] VITALS: BP 139/99; PULSE 84; RESP 18; O2SAT 98
--- NOTE | 2022-12-05 08:44 | PC.NURSE ---
pt awake and arousable. drowsy but responsive. a&o x4, compliant. labs drawn, IV placed, fluids hung per mar. gave permission to notify mother. pt will give urine sample when has to go to the bathroom. vss. wctm
[2022-12-05 08:58] LABS: Troponin-I High Sensitivity < 2.7 ng/L (<3.5-17.0)
[2022-12-05 09:11] LABS: Alanine Aminotransferase 14 U/L (0-31); Alkaline Phosphatase 95 U/L (39-117); Anion Gap 13 (12-20); Aspartate Amino Transferase 19 U/L (5-31); Bilirubin Total 0.3 mg/dL (0.0-1.0); Blood Urea Nitrogen 8 mg/dL (9-16); Calcium 9.5 mg/dL (8.4-10.2); Carbon Dioxide 25 mmol/L (22-29); Chloride 110 mmol/L (96-108); Creatinine Clr Calc Pharmacy 86.2; Estimated Glomerular Filt Rate > 60; Glucose Random 86 mg/dL (60-115); Potassium 3.9 mmol/L (3.3-5.1); Sodium 144 mmol/L (135-145); Total Protein 8.7 g/dL (6.5-8.0)
[2022-12-05 09:21] LABS: HCG Quantitative < 2 mIU/mL
--- NOTE | 2022-12-05 09:37 | PC.NURSE ---
EKG obtained by lm Kirk friend of pt stopped by to drop off pt's phone at ED check-in pt sleeping on stretcher comfortably. rr even/unlabored. wctm
--- NOTE | 2022-12-05 10:22 | MHC.RECOVRN ---
Briefly met with pt in ED5 after pt BIBA found unresponsive, down time 45min-1 hr, still unresponsive at arrival. Per provider note, Narcan administered with no effect. Pt laying in bed, drowsy but wakes to voice. Pt does not engage with t/w, only nods head yes or no. Pt declining ATS. T/w to check in later when pt more awake.
[2022-12-05 11:18] LABS: Appearance Urine Clear; Color Urine Yellow; Glucose Urine UA Negative (Negative); Leukocyte Esterase Urine Negative (Negative); Nitrite Urine Negative (Negative); Urine Blood Negative (Negative); Urine Ketones Negative (Negative); Urine Protein Negative (Neg-Trace)
[2022-12-05 11:20] LABS: Bacteria Urine None Seen (None Seen); Hyaline Casts Urine 0-2 /LPF (0-2); RBC Urine 0-2 /HPF (0-2); Squamous Epithelial Cell Urine 0-2 /HPF (0-2); WBC Urine 0-5 /HPF (0-5)
[2022-12-05 11:52] VITALS: BP 101/52; PULSE 74; RESP 19; O2SAT 97
[2022-12-05 12:52] VITALS: BP 95/59; PULSE 72; RESP 20; O2SAT 97
[2022-12-05 13:31] LABS: Amphetamine Screen Urine Not Detected (Not Detect); Barbiturates, Urine Not Detected (Not Detect); Benzodiazepines Screen Urine Not Detected (Not Detect); Cannabinoid Screen Urine Not Detected (Not Detect); Cocaine Screen Urine POSITIVE (Not Detect); Fentanyl, urine Not Detected (Not Detect); Opiate Screen Urine Not Detected (Not Detect); Phencyclidine Screen Urine Not Detected (Not Detect)
[2022-12-05 14:35] VITALS: BP 119/59; PULSE 68; RESP 16; O2SAT 97
--- NOTE | 2022-12-05 15:07 | MHC.RECOVRN ---
Met with pt and pts mother and father in ED5 after parents requested recovery support information. When asked if pt has questions or concerns, pt states Can I go home? Pt reports cocaine use a couple times a month and is not currently concerned regarding alcohol or substance use. Educated pt and parents on harm reduction with alcohol and substance use, discussed [employer] and provided fentanyl test strips. Parents do have Narcan at home, declined take home Narcan from ED. Provided pt and parents with written recovery resources/supports and answered all questions. Encouraged pt/parents to call t/w if needed.
== END 2022-12-05 15:09 | disposition home or self-care (01) ==
PROVIDERS: Emergency Provider Emergency Medicine
DX: F10.10 Alcohol abuse, uncomplicated (principal); F19.10 Other psychoactive substance abuse, uncomplicated; Y90.6 Blood alcohol level of 120-199 mg/100 ml; R41.82 Altered mental status, unspecified
CPT/HCPCS: 36415; 70450; 71045; 72125; 80053; 80307; 81001; 82947; 84484; 84702; 85025; 93005; 96360; 96361; 99284; 99285

== ENCOUNTER → 2022-12-05 07:27 | Outpatient (BNV) | payer BC, SELFPAY | PROVIDERS: Emergency Provider Emergency Medicine; Visit Provider Internal Medicine Cardiovascular Disease | DX: R41.82 Altered mental status, unspecified (principal) | CPT/HCPCS: 93010 ==

== ENCOUNTER 2025-01-13 19:40 | Emergency (ER) | payer BC, SELFPAY ==
--- NOTE | 2025-01-13 | ECG_ITS ---
Test Reason : SYNCOPE/SEIZURE Blood Pressure : */* mmHG Vent. Rate : 74 BPM Atrial Rate : 74 BPM P-R Int : 142 ms QRS Dur : 94 ms QT Int : 382 ms P-R-T Axes : 50 5 36 degrees QTcB Int : 424 ms Normal sinus rhythm with sinus arrhythmia Normal ECG When compared with ECG of 05-Dec-2022 08:47, No significant change was found Referred By: Generic ED Physician Electronically Signed By: MARJ BRADEN
[2025-01-13 19:46] VITALS: BP 116/72; BP 116/74; PULSE 74; PULSE 80; RESP 16; TEMP 36.3; O2SAT 100; BMI 24.1
[2025-01-13 19:55] VITALS: BP 116/74; PULSE 80; RESP 16; TEMP 36.3
--- NOTE | 2025-01-13 19:58 | PC.NURSE ---
pt feeling better, positive abdominal pain, denies headache or dizziness. Pt ambulated to bathroom with setady gate. A&O x4.
[2025-01-13 19:59] VITALS: O2SAT 96
[2025-01-13 20:06] LABS: Appearance Urine Clear; Glucose Urine UA Negative (Negative); PH 6.0 (5.0-9.0); Specific Gravity - Urine 1.025 (1.005-1.025); UMIC TRIGGER UACC YES
[2025-01-13 20:08] LABS: UACC Culture Trigger YES
[2025-01-13 20:11] LABS: MANUAL DIFF FLAG NO
[2025-01-13 20:13] LABS: Hematocrit 34.1 % (37.0-47.0); Hemoglobin 11.9 g/dl (12.0-16.0); Imm Gran Abs Auto 0.03 X10*3/uL (0.00-0.03); Imm Gran Pct Auto 0.3 % (0.0-0.4); Lymphocytes Absolute Auto 2.0 X10*3/uL (1.2-4.9); Mean Corpuscular HGB Conc 34.9 g/dl (31.0-35.0); Mean Corpuscular Hemoglobin 30.1 pg (27.0-33.0); Mean Corpuscular Volume 86.3 fL (80.0-98.0); NRBC Abs Auto 0.000 X10*3/uL (0.0-0.012); NRBC Pct Auto 0.0 /100WBC (0.0-0.2); Platelet Count 221 X10*3/uL (160-400); Red Blood Count 3.95 X10*6/uL (4.20-5.50); White Blood Count 10.0 X10*3/uL (4.8-10.8)
[2025-01-13 20:32] LABS: Alanine Aminotransferase 19 U/L (0-31); Albumin Level 4.5 g/dL (3.5-5.0); Alkaline Phosphatase 61 U/L (39-117); Anion Gap 17 (12-20); Aspartate Amino Transferase 23 U/L (5-31); Blood Urea Nitrogen 14 mg/dL (9-16); Calcium 9.1 mg/dL (8.4-10.2); Carbon Dioxide 18 mmol/L (22-29); Chloride 107 mmol/L (96-108); Creatinine Clr Calc Pharmacy 120.9; Estimated Glomerular Filt Rate > 60; Potassium 3.9 mmol/L (3.3-5.1); Sodium 138 mmol/L (135-145); Total Protein 7.4 g/dL (6.5-8.0)
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
--- OUTSIDE RECORDS SUMMARY | 2025-01-13 21:17 | XMS_ITS | Clinical Summary ---
Author Organization [facility] Address [address] [place] [address] Phone Care Team Providers Care Underground Distribution Engineer Name Role Phone Mitch Arcos MD Primary Care Provider [phone] Allergies No known active allergies Medications FLUoxetine (PROZAC) 20 MG capsule Take 20 mg by mouth. 10/24/2018 Active montelukast (SINGULAIR) 10 mg tablet Take 10 mg by mouth. 10/03/2018 Active Social History Tobacco Use Types Packs/Day Years Used Date Smoking Tobacco: Never Smokeless Tobacco: Never Alcohol Use Standard Drinks/Week Comments No 0 (1 standard drink = 0.6 oz pur e alcohol) Education Answer Date Recorded Are you interested in more education? Not on keyon e 09/11/2022 Are you concerned about learning? Not on file 09/11/2022 No 09/11/2022 No 09/11/2022 Digital Access Answer Date Recorded No 10/13/2022 No 10/13/2022 No 10/13/2022 Reliable internet access at home? Not on file 10/13/2022 Device with a working camera? Not on file Comments No Sex and Gender Information Value Date Recorded Sex Assigned at Female 07/14/2018 10:48 PM EST Legal Sex Female 10:46 PM EST Gender Identity Female 07/14/2018 10:48 PM EST Sexual Orientation Pansexual 07/14/2018 10 :48 PM EST Last Filed Vital Signs Vital Sign Reading Time Taken Comments Blood Pressure 105/60 02/05/2021 3:55 AM EDT Pulse 96 02/05/2021 3:55 AM EDT Temperature 36.9 C (98.4 F) 02/05/2021 2:47 AM EDT Respiratory Rate 20 02/05/2021 3:55 AM EDT Oxygen Saturation 99% 02/05/2021 3:55 AM EDT Inhaled Oxygen Concentration - - Weight 63.5 kg (140 lb) 12/27/2018 11:01 PM EDT Height 165.1 cm (5' 5 ) 12/27/2018 11:01 PM EDT Body Mass Index 23.3 12/27/2018 11:01 PM EDT Plan of Treatment Health Maintenance Due Date Last Done Comments DEPRESSION SCREENING 2011 SMOKING Hx and SMOKELESS TOBACCO SCREENING 10/13/2012 HEPATITIS C SCREENING 10/13/2017 HIV ONE-TIME SCREENING (18-65 YEARS) 10/13/2017 PAP SMEAR 10/13/2020 Adult Td,Tdap Booster 11/26/2021 11/27/2011 COVID-19 VACCINE ( season) 2024 09/21/2020 HIB VACCINES Completed 12/27/2000, 12/2000, 04/22/2000, Additional history exists PNEUMOCOCCAL VACCINES (0-49 years) Aged Out 12/27/2000, 05/24/2000, 04/22/2000, Additional history exists No longer eligible based on patient's age to complete this topic HPV VACCINES Completed 07/10/2014, 02/15, 01/01/2014 MENINGOCOCCAL VACCINES (ACWY) Completed 01/23/2016, 11/27/2011 HEPATITIS A VACCINES Completed 02/08/2018, 01/23/20 16 MENINGOCOCCAL VACCINES (B) Aged Out N o longer eligible based on patient's age to complete this topic Medical Devices Not on file Insurance FEDERAL [employer] [facility] [employer] [facility] [employer] [facility] [employer] [facility] Direct Vet Marketing INSURANCE [facility] Care Teams Underground Distribution Engineer Relationship Specialty Start Date End Date Mitch Arcos MD [address] [place] [address] [place] [address] PCP - General Pediatrics 07/14/18 Additional Source Comments The information contained in this document represents components of the legal health record. It is not the complete legal health record.[facility]
--- OUTSIDE RECORDS SUMMARY | 2025-01-13 21:17 | XMS_ITS | Encounter Summary ---
Author Organization [facility] Address [address] [place] [address] Phone Care Team Providers Care Daycare Teacher Name Role Phone Mitch Arcos MD Primary Care Provider Reason for Visit * Reason Comments Med Refill Encounter Details Date Type Department Care Team (Late st Contact Info) Description 01/14/2019 Refill [facility] [address] [facility] [place] [address] Mitch Arcos MD [address] [place] [address] [place] [address] Mild intermittent asthma without complication Social History Tobacco Use Types Packs/Day Years Used Date Smoking Tobacco: Never Comments:Never Smoker Comments Unknown Sex and Gender Information Value Date Recorded Sex Assigned at Not on file Legal Sex Female 6:25 PM EDT Gender Identity Not on file Sexual Orientation Straight 02/09/2019 9: 41 AM EDT documented as of this encounter Plan of Treatment Not on file documented as of this encounter Visit Diagnoses Diagnosis Mild intermittent asthma without complication documented in this encounter Care Teams Daycare Teacher Relationship Specialty Start Date End Date Mitch Arcos MD [address] [place] [address] [place] [address] PCP - General 09/22/17 documented as of this encounter
--- OUTSIDE RECORDS SUMMARY | 2025-01-13 21:17 | XMS_ITS | Encounter Summary ---
Author Organization [facility] Address [address] [place] [address] Phone Care Team Providers Care Tire Specialist Name Role Phone Mitch Arcos MD Primary Care Provider Encounter Details Date Type Department Care Team (Late st Contact Info) Description 11/06/2010 Conversion Encounter [facility] [address] [place] [place] [address] Social History Tobacco Use Types Packs/Day Years Used Date Smoking Tobacco: Never Assessed Comments Unknown Sex and Gender Information Value Date Recorded Sex Assigned at Not on file Legal Sex Female 6:25 PM EDT Gender Identity Not on file Sexual Orientation Straight 02/09/2019 9: 41 AM EDT documented as of this encounter Plan of Treatment Not on file documented as of this encounter Visit Diagnoses Not on filedocumented in this encounter Care Teams Tire Specialist Relationship Specialty Start Date End Date Mitch Arcos MD [address] [facility] [place] [address] PCP - General 09/22/17 documented as of this encounter
[2025-01-13 22:20] VITALS: BP 120/69; PULSE 81; RESP 14; TEMP 36.8; O2SAT 98
[2025-01-13 22:27] VITALS: BP 120/69; PULSE 81; RESP 14; TEMP 36.8; O2SAT 98
== END 2025-01-13 22:28 | disposition home or self-care (01) ==
PROVIDERS: Emergency Provider Emergency Medicine
DX: O26.891 Other specified pregnancy related conditions, first trimester (principal); R55 Syncope and collapse; R10.2 Pelvic and perineal pain; I49.8 Other specified cardiac arrhythmias; Z3A.01 Less than 8 weeks gestation of pregnancy; Z79.899 Other long term (current) drug therapy
CPT/HCPCS: 36415; 80053; 81001; 84702; 85025; 87086; 93005; 99283; 99285

== ENCOUNTER → 2025-01-13 19:48 | Outpatient (BNV) | payer BC, SELFPAY | PROVIDERS: Emergency Provider Emergency Medicine; Visit Provider Internal Medicine | DX: R55 Syncope and collapse (principal); R56.9 Unspecified convulsions | CPT/HCPCS: 93010 ==

== ENCOUNTER 2025-01-22 21:51 | Emergency (ER) | payer BC, SELFPAY ==
--- NOTE | 2025-01-22 22:53 | ED_ITS ---
HPI - General Adult General Chief complaint: Vaginal Bleeding Stated complaint: vaginal bleeding (? miscarriage) Time Seen by Provider: 01/22/25 23:32 Source: patient Mode of arrival: ambulatory Limitations: no limitations History of Present Illness ED Provider: Dr. Ashwini Alcantara HPI narrative: 24-year-old female with no significant past medical history presenting with continued vaginal bleeding that is been ongoing for the last several days. She is currently approximately 8-1/2 weeks based on her last menstrual cycle. States that she has been having initially some spotting which has become more of a brisk bleeding and has even passed a few clots. Denies any abdominal pain. No associated dysuria or hematuria. No reported fever. Denies nausea or vomiting. No bowel complaints. She has not had her 1st appointment with her OBGYN yet. Related Data Previous Rx's ?Medication ?Instructions ?Recorded cephalexin 500 mg capsule 500 mg PO TID 5 days #15 cap s 10/03/22 phenazopyridine 200 mg tablet 200 mg PO TID PRN Burnin g with 10/03/22 (Pyridium) urination 3 days #9 tabs Allergies Allergy/AdvReac Type Severity Reaction Status Date / Time No Known Allergies Allergy Verified 01/22/25 23:03 Review of Systems 2 Review of Systems: as per HPI, full review of systems performed and negative but for the above mentioned pertinent positives and negatives. [facility] Past Medical History Medical History Asthma Social History Social History Alcohol intake: current Alcohol intake frequency: a few times a week Smoked in Last 30 Days: No Use of substances other than those prescribed or required for medical reasons: No Substance Use Type: Crack/Cocaine Advance Directives: No Advance Directives Information Provided: Yes Do you have a plan to hurt others: No Plan Physical Exam ED Exam Exam: GENERAL: Well-Appearing, conversant, no acute distress. SKIN: Normal skin color for ethnicity, warm, dry, no rashes noted. HEENT: Normocephalic, atraumatic, no stridor, posterior oropharynx nonerythematous, dentition intact, EOMI. NECK: Soft, supple, full ROM, midline structures nontender, no step-offs, no deformities, no lymphadenopathy. CHEST: Heart regular rate and rhythm, no murmurs, symmetric chest rise and fall. PULMONARY: Clear to auscultation bilaterally, no labored breathing, no wheezes/rhales/rhonchi. ABDOMINAL: Soft, nondistended, nontender, positive bowel sounds in all quadrants. : Deferred. MUSCULOSKELETAL: Normal tone, full range of motion, no deformities, no peripheral edema. NEURO: Alert and oriented x3, CN II through XII intact, equal strength and sensation bilateral upper and lower extremities, no focal neurologic deficits. PSYCHIATRIC: Normal affect, fluid speech, good eye contact and appropriate demeanor. Vital Signs: Vital Signs - 24 hr 01/22/25 22:55 Temperature 98.1 F Pulse Rate 73 Respiratory Rate 20 Blood Pressure 100/66 Pulse Oximetry 99 Oxygen Delivery Method Room Air BMI result Body Mass Index 25.0 Course Course Course Narrative: RME, this is a rapid medical exam performed by Jac Barbosa please refer to primary provider for complete H&P- 24-year-old female who reports she has about a day and a half weeks , presents for evaluation of vaginal bleeding. She is concerned that she is having a miscarriage. Symptoms started at 8:00 p.m., about 2 hours prior to arrival. Plan for labs, urinalysis and hCG. Medical Decision Making Medical Decision Making [facility] Narrative: Patient presents today with chief complaint of vaginal bleeding. Differential diagnosis would include anemia, dysfunctional uterine bleeding, and if ectopic , threatened , missed , incomplete , among many others. Patient is not significantly anemic today. Bedside ultrasound shows heart tones of 148. No evidence of subchorionic hemorrhage. Patient is stable to follow up with OBGYN next week. Differential Diagnosis Differential Diagnoses: The differential diagnosis associated with the presentation includes (As above) Admission/Observation Consideration of admission/observation: Escalation of care including admission/observation considered Lab Data [facility] Lab Attestation statement: I reviewed the patient's lab results. 01/22/25 23:13 01/22/25 23:13 Labs: Lab Results 01/22/25 01/22/25 Range/Units 23:13 23:29 WBC 10.3 (4.8-10.8) X10*3/uL RBC 3.74 L (4.20-5.50) X10*6/uL Hgb 11.3 L (12.0-16.0) g/dl Hct 32.8 L (37.0-47.0) % MCV 87.7 (80.0-98.0) fL MCH 30.2 (27.0-33.0) pg MCHC 34.5 (31.0-35.0) g/dl RDW 12.6 (11.0-16.0) % Plt Count 214 (160-400) X10*3/uL MPV 10.6 (9.4-12.3) fL Immature Gran % (Auto) 0.4 (0.0-0.4) % Neut % (Auto) 68.5 (45-73) % Lymph % (Auto) 21.2 (20-40) % [place] % (Auto) 7.3 (2-11) % Eos % (Auto) 1.9 (0-4) % Baso % (Auto) 0.7 (0-2) % Lymph # (Auto) 2.2 (1.2-4.9) X10*3/uL [place] # (Auto) 0.8 (0.1-1.2) X10*3/uL Eos # (Auto) 0.2 (0.0-0.4) X10*3/uL Baso # (Auto) 0.1 (0.0-0.2) X10*3/uL Abs Immat Gran (auto) 0.04 H (0.00-0.03) X10*3/uL Absolute Neuts (auto) 7.0 (2.0-8.3) x10*3/uL Absolute Nucleated RBC 0.000 (0.0-0.012) X10*3/uL Nucleated RBC % (auto) 0.0 (0.0-0.2) /100WBC Sodium 137 (135-145) mmol/L Potassium 3.8 (3.3-5.1) mmol/L Chloride 105 (96-108) mmol/L Carbon Dioxide 25 (22-29) mmol/L Anion Gap 11 L (12-20) BUN 16 (9-16) mg/dL Creatinine 0.60 (0.5-1.4) mg/dL Estim Creat Clear Calc 128.9 Estimated GFR > 60 Random Glucose 85 (60-115) mg/dL Calcium 9.2 (8.4-10.2) mg/dL Total Bilirubin 0.2 (0.0-1.0) mg/dL AST 21 (5-31) U/L ALT 18 (0-31) U/L Alkaline Phosphatase 48 (39-117) U/L Total Protein 6.7 (6.5-8.0) g/dL Albumin 4.1 (3.5-5.0) g/dL Beta HCG, Quant [id number] mIU/mL Urine Color Yellow Urine Appearance Clear Urine pH 6.5 (5.0-9.0) Ur Specific [place] <= 1.005 (1.005-1.025) Urine Protein Negative (Neg-Trace) mg/dL Urine Glucose (UA) Negative (Negative) mg/dL Urine Ketones Negative (Negative) mg/dL Urine Blood Large (3+) H (Negative) Urine Nitrite Negative (Negative) Ur Leukocyte Esterase Trace H (Negative) Urine RBC 0-2 (0-2) /HPF Urine WBC 0-5 (0-5) /HPF Ur Squamous Epith Cells 0-2 (0-2) /HPF Urine Bacteria None Seen (None Seen) Hyaline Casts 0-2 (0-2) /LPF Blood Type O Positive Independent Historian Clinical information obtained from an independent historian. History obtained from or confirmed by: Spouse External Record Review External record reviewed: Inpatient record Social Determinants Patient?s care significantly limited by Social Determinants of Health including: Low income and Problems related to primary support group Discharge Plan Discharge Clinical Impression: First trimester bleeding Patient Disposition: Home, Self-Care Instructions: Subchorionic Hemorrhage (ED) Additional Instructions: Keep your appointment with the OBGYN on the . Return to the ER sooner if you develop any new or worsening symptoms including: Worsening bleeding, worsening abdominal pain, passing large clots, fevers greater than 100?, any new symptom that concerns you. Do not have intercourse or put anything into your vagina until you see the OBGYN. Your urine does not show significant infection today. If you develop painful urination or worsening abdominal pain, you should come back to the hospital for another urine test. Prescriptions: No Action phenazopyridine [Pyridium] 200 mg tablet 200 mg PO TID PRN (Reason: Burning with urination) 3 Days Qty: 9 0RF cephalexin 500 mg capsule 500 mg PO TID 5 Days Qty: 15 0RF Interventions: ED Discharge Assessment Last Done: 01/23/25 00:47 Discharge Date/Time: 01/23/25 00:47 Print Language: Bolivian
[2025-01-22 22:55] VITALS: BP 100/66; PULSE 73; RESP 20; TEMP 36.7; O2SAT 99; BMI 25.0
[2025-01-22 23:19] LABS: MANUAL DIFF FLAG NO
[2025-01-22 23:21] LABS: Hematocrit 32.8 % (37.0-47.0); Hemoglobin 11.3 g/dl (12.0-16.0); Imm Gran Abs Auto 0.04 X10*3/uL (0.00-0.03); Imm Gran Pct Auto 0.4 % (0.0-0.4); Lymphocytes Absolute Auto 2.2 X10*3/uL (1.2-4.9); Mean Corpuscular HGB Conc 34.5 g/dl (31.0-35.0); Mean Corpuscular Hemoglobin 30.2 pg (27.0-33.0); Mean Corpuscular Volume 87.7 fL (80.0-98.0); NRBC Abs Auto 0.000 X10*3/uL (0.0-0.012); NRBC Pct Auto 0.0 /100WBC (0.0-0.2); Platelet Count 214 X10*3/uL (160-400); Red Blood Count 3.74 X10*6/uL (4.20-5.50); White Blood Count 10.3 X10*3/uL (4.8-10.8)
[2025-01-22 23:42] LABS: Alanine Aminotransferase 18 U/L (0-31); Albumin Level 4.1 g/dL (3.5-5.0); Alkaline Phosphatase 48 U/L (39-117); Anion Gap 11 (12-20); Aspartate Amino Transferase 21 U/L (5-31); Blood Urea Nitrogen 16 mg/dL (9-16); Calcium 9.2 mg/dL (8.4-10.2); Carbon Dioxide 25 mmol/L (22-29); Chloride 105 mmol/L (96-108); Creatinine Clr Calc Pharmacy 128.9; Estimated Glomerular Filt Rate > 60; Potassium 3.8 mmol/L (3.3-5.1); Sodium 137 mmol/L (135-145); Total Protein 6.7 g/dL (6.5-8.0)
[2025-01-22 23:45] LABS: Appearance Urine Clear; Glucose Urine UA Negative (Negative); PH 6.5 (5.0-9.0); Specific Gravity - Urine <= 1.005 (1.005-1.025); UMIC TRIGGER UACC YES
--- OUTSIDE RECORDS SUMMARY | 2025-01-23 00:05 | XMS_ITS | Clinical Summary ---
Author Organization [facility] Address [address] [place] [address] Phone Care Team Providers Care Harness Mender Name Role Phone Mitch Arcos MD Primary Care Provider [phone] Allergies No known active allergies Medications FLUoxetine [...] SMEAR 10/13/2020 Adult Td,Tdap Booster 11/26/2021 11/27/2011 INFLUENZA VACCINE (#1) 2024 , 02/08/2018, 01/25/2017 COVID-19 VACCINE (2 - 2024- season) 2025 09/21/2020 HIB VACCINES Completed 12/27/2000, 12/2000, 04/22/2000, [...] topic Medical Devices Not on file Insurance [facility] [employer] Member Subscriber Plan / Payer (Ef fective 2018-Present) Name:Merlyn Shields Relation to Subscriber:Self Name:Merlyn Shields Payer ID:Not on file Group ID:Not on file Type:Indemnity Address: [address] Care Teams Harness Mender Relationship Specialty Start Date End Date Mitch Arcos MD [address] [place] [address] [place] [address] PCP - General Pediatrics 07/14/18 Additional Source Comments The information contained in this document represents components of the legal health record. It is not the complete legal health record.[facility]
--- OUTSIDE RECORDS SUMMARY | 2025-01-23 00:06 | XMS_ITS | Encounter Summary ---
Author Organization [facility] Address [address] [place] [address] Phone Care Team Providers Care Goodwill Representative Name Role Phone Mitch Arcos MD Primary Care Provider Reason for Visit * Reason Comments Med Refill Encounter Details Date Type Department Care Team (Late st Contact Info) Description 01/14/2019 Refill [facility] [address] [place] [address] Mitch Arcos MD [address] [place] [address] [place] [address] Mild intermittent asthma without complication Social History [...] complication documented in this encounter Care Teams Goodwill Representative Relationship Specialty Start Date End Date Mitch Arcos MD [address] [place] [address] [place] [address] PCP - General 09/22/17 documented as of this encounter
--- OUTSIDE RECORDS SUMMARY | 2025-01-23 00:06 | XMS_ITS | Clinical Summary ---
Author Organization [facility] Address [address] [place] [address] Phone Care Team Providers Care Frame Repairer Name Role Phone Mitch Arcos MD Primary Care Provider [phone] Allergies No known active allergies Medications Montelukast [...] has no side effects. We will continue [facility] the medication. Do it daily. Recheck in [...] 11/26/2021 11/27/2011, 10/17/2004, 03/22/2001, Additional history exists Influenza Vaccines (#1) 2024 02/12/20 20, 02/09/2019, 02/08/2018, Additional history exists COVID-19 Vaccine ( season) 2025 10/30/2020, 09/21/2020 Hepatitis B Vaccines Completed 09/24/2000, 1999, 1999 [...] complete this topic Procedures * Due to [place] [employer] law, this organization might not be sharing sensitive test results. Procedure Name Priority Date/Time Associated Diagnosis Comments JAYDEAB (ADV) VAGINITIS PLUS, TMA Routine 03/21/2020 4:12 PM EST Vaginal pain from Last 3 Months or Most Recently Relevant to Health Maintenance Results * Due to [place] [employer] law, this organization might not be sharing sensitive test results. * (ABNORMAL) Vaginosis Vaginitis Plus (03/21/2020 4:12 PM EST) BACTERIAL VAGINOSIS TEST NEGATIVE (NEG) [facility] Comment: No bacterial vaginosis targets by PCR detected in this patient's sample. Note: This assay uses real time inorganic chemical technician-mediated amplification (TMA) for detection and quantification of ribosomal RNA from bacteria associated with bacterial vaginosis (BV), including Lactobacillus (L. gasseri, L. crispatus, and L. jensenii), Gardnerella vaginalis, and Atopobium vaginae. Jayla Species POSITIVE(A) (NEG) [facility] Comment: Jayla species group (C. albicans, C. tropicalis, C. parapsilosis, C. dubliniensis) targets by PCR detected in this patient's sample. Jayla Glabrata, MARVA NEGATIVE (NEG) [facility] Comment:No Jayla glabrata targets by PCR detected in this patient's sample. SureSwab, T.vaginalis RNA NEGATIVE (NEG) [facility] Comment: No Trichomonas vaginalis targets by PCR detected in this patient's sample. Note: This assay uses real time inorganic chemical technician-mediated amplification (TMA) for detection and quantification of ribosomal RNA from organisms associated with Jayla species group (C. albicans, C. tropicalis, C. parapsilosis, C. dubliniensis), Jayla glabrata, and Trichomonas vaginalis. Chlamydia Trachomatis, Amplified NEGATIVE (NEG) [facility] Comment: No Chlamydia Trachomatis RNA detected in this patient's sample (REFERENCE RANGE/NORMAL VALUE: NOT DETECTED) Note: This test uses inorganic chemical technician- mediated amplification method to detect rRNA from C. Trachomatis N.GONORRHOEAE AMP PROBE NEGATIVE (NEG) [facility] Comment: No Neisseria Gonorrhoeae RNA detected in this patient's sample (REFERENCE RANGE/NORMAL VALUE: NOT DETECTED) NOTE: This test uses inorganic chemical technician-mediated amplification method to detect rRNA from N.Gonorrhoeae. [...] without risk of sexual abuse. Consult the [facility] if needed. Contact phone number . Therapeutic failure or success cannot be determined with the Aptima Combo2 assay since nucleic acid may persist following appropriate antimicrobial therapy. The Centers for Disease Control and Prevention (CDC) recommends confirmatory retesting using culture or a different nucleic acid amplification test when positive results occur, if indicated. Testing performed or reported by [facility], a Service of [facility], [address] [place] [address] Jamshid Parker MD, Pearl Glue Drier Swab 03/21/2020 4:12 PM EST 03/21/2020 11:20 PM EST us Natacha Mao MD LAB MICROBIOLOGY - GENERAL ORDER LING Final Result [facility] from Last 3 Months or Most Recently Relevant to Health Maintenance Insurance [facility] FEDERAL Care Teams Frame Repairer Relationship Specialty Start Date End Date Mitch Arcos MD [facility] [facility] [place] [address] PCP - General 09/22/17
--- OUTSIDE RECORDS SUMMARY | 2025-01-23 00:06 | XMS_ITS | Encounter Summary ---
Author Organization [facility] Address [address] [place] [address] Phone Care Team Providers Care Finished Cloth Checker Name Role Phone Mitch Arcos MD Primary Care Provider Encounter Details Date Type Department Care Team (Late st Contact Info) Description 11/06/2010 Conversion Encounter [facility] [address] [facility] [place] [address] Social History Tobacco Use Types Packs/Day Years [...] on filedocumented in this encounter Care Teams Finished Cloth Checker Relationship Specialty Start Date End Date Mitch Arcos MD [address] [facility] [place] [address] PCP - General 09/22/17 documented as of this encounter
[2025-01-23 00:47] VITALS: BP 100/66; PULSE 73; RESP 20; TEMP 36.7; O2SAT 99
== END 2025-01-23 00:47 | disposition home or self-care (01) ==
PROVIDERS: Physician Assistant; Emergency Provider Emergency Medicine
DX: O20.9 Hemorrhage in early pregnancy, unspecified (principal); Z3A.08 8 weeks gestation of pregnancy; R10.2 Pelvic and perineal pain; Z79.899 Other long term (current) drug therapy
CPT/HCPCS: 36415; 80053; 81001; 84702; 85025; 86900; 86901; 99284